=== PATIENT | male | born 1940 | race Caucasian/White ===

== ENCOUNTER 2017-01-07 14:21 | Observation (INO) ==
[2017-01-07 15:52] LABS: Basophils % 0.1 %; Eosinophils # 0.5 K/mcL (0.0-0.6); Eosinophils % 5.6 %; Hematocrit 37.7 % (37.5-50.1); Immature Granulocytes % 1.2 % (0-4); Lymphocytes # 1.7 K/mcL (0.6-4.6); Lymphocytes % 20.8 %; Mean Corpuscular HGB Conc 34.5 g/dL (31.6-35.5); Mean Corpuscular Volume 89.8 fL (83.0-100.0); Mean Platelet Volume 9.9 fL (9.4-12.4); Monocytes # 0.5 K/mcL (0.0-1.3); Monocytes % 6.2 %; Neutrophils # 5.4 K/mcL (1.6-8.9); Platelet Count 244 K/mcL (140-400); Red Cell Distribution Width 15.9 % (11.5-14.5); Segmented Neutrophils % 66.1 %
[2017-01-07 16:05] LABS: Alanine Aminotransferase 36 Units/L (0-55); Albumin 2.9 g/dL (3.5-5.0); Albumin/Globulin Ratio 0.9 (1.1-2.2); Alkaline Phosphatase 77 Units/L (38-126); Aspartate Amino Transferase 30 Units/L (5-34); BUN/Creatinine Ratio 13 (6-26); Bilirubin,Total 0.6 mg/dL (0.2-1.2); Blood Urea Nitrogen 12 mg/dL (8-26); Calcium 9.1 mg/dL (8.6-10.8); Carbon Dioxide 28 mEq/L (19-29); Chloride 102 mEq/L (98-109); Globulin 3.4 g/dL (2.4-3.5); Glucose 72 mg/dL (70-99); Osmolality,Calculated 282 (280-300); Potassium 4.3 mEq/L (3.5-4.5); Sodium 137 mEq/L (136-145); Total Protein 6.3 g/dL (6.0-8.3); eGFR For African Americans > 60 (> 60); eGFR For Non-African Americans > 60 (> 60)
[2017-01-07 16:24] LABS: INR 1.2; Prothrombin Time 12.8 Seconds (9.4-12.1)
[2017-01-07 16:27] LABS: Activated Partial Thrombo Time 26.1 Seconds (26.0-36.0)
--- NOTE | 2017-01-07 16:42 | Emergency Department Note ---
Disposition Clinical Impression: Bradycardia Disposition: Admitted As Inpatient Referrals: Bahman Pugh, [employer] [Primary Care Provider] - Forms: ED Satisfaction Letter General Adult HPI - General Chief complaint: ED Chest Pain Stated complaint: Headache Time Seen by Provider: 01/07/17 14:50 Source: patient, family Limitations: no limitations Nursing Notes Reviewed: Yes Vital Signs Reviewed: Yes - History of Present Illness HPI Narrative: Patient presents with complaint of headache shortness of breath. Patient states the headaches been going on for a few days he noticed after the shortness of breath started. Patient denies chest pain he does note he is been more short of breath over the past week with ambulation. Patient denies fevers and chills. Patient also noticed that he developed a low heart rate that went down in the 30s today while he was at home. Patient denies prior history of similar symptoms. he denies numbness and tingling denies bowel or bladder dysfunction associated with this. Pain Scale: 5 - Related Data Home Medications Medication Instructions Recorded Confirmed Albuterol Sulfate [Proair Hfa] 2 puff IH Q4H PRN 07/19/16 11/27/16 Aspirin [Lo-Dose Aspirin EC] 81 mg PO DAILY 07/19/16 11/27/16 Betaine HCl 300 mg PO DAILY 07/19/16 11/27/16 Calcium Carbonate [Calcium] 600 mg PO BID 07/19/16 11/27/16 Clopidogrel [Plavix] 75 mg PO DAILY 07/19/16 11/27/16 Cyanocobalamin (Vitamin B-12) 2,500 mcg SL DAILY 07/19/16 11/27/16 [Vitamin B-12] Enalapril Maleate [Vasotec] 20 mg PO BID 07/19/16 11/27/16 Finasteride [Proscar] 5 mg PO DAILY 07/19/16 11/27/16 Hydrochlorothiazide 0.5 tab PO QMWF 07/19/16 11/27/16 Insulin ASPART [Novolog Flexpen] 15 - 20 unit SQ TIDAC 07/19/16 11/27/16 Insulin Glargine,Hum.rec.anlog 50 unit SQ BID 07/19/16 11/27/16 [Lantus Solostar] Metoprolol [Lopressor] 1 tab PO DAILY 07/19/16 11/27/16 Multivit-Min/FA/Lycopen/Lutein 1 each PO DAILY 07/19/16 11/27/16 [Centrum Silver Tablet] Nitroglycerin 0.4 mg SL AD 07/19/16 11/27/16 Omeprazole 20 mg PO DAILY 07/19/16 11/27/16 Tacrolimus [Prograf] 1 mg PO BID 07/19/16 11/27/16 Tamsulosin [Flomax] 0.4 mg PO DAILY 07/19/16 11/27/16 Vitamin E 1,000 unit PO DAILY 07/19/16 11/27/16 Gabapentin [Neurontin] 300 mg PO DAILY 10/09/16 11/27/16 Previous Rx's Medication Instructions Recorded Polyethylene Glycol 3350 [MiraLAX 1 scoop PO DAILY #510 gm 07/19/16 Powder Bulk 17.9 Oz] Oxygen 2 l IH AD #1 unit 08/01/16 TraMADol [Ultram] 50 mg PO TID PRN #90 tablet 08/01/16 Supplies [SUPPLIES] 1 each .ROUTE AD #1 each 09/07/16 Sorafenib Tosylate [Nexavar] 200 mg PO BID #60 tablet 11/08/16 Allergies Allergy/AdvReac Type Severity Reaction Status Date / Time codeine AdvReac Vomiting Verified 11/08/16 11:35 morphine AdvReac See Verified 11/08/16 11:35 Comments Penicillins AdvReac Rash Verified 11/08/16 11:35 All systems ED: reviewed and negative except as stated. Past Medical History - Past Medical History Source: patient Medical history: Reports: COPD, coronary artery disease, diabetes, myocardial infarction, other Psychiatric history: Reports: no psych history - Social History Smoking Status: Unknown if ever smoked Smokeless Tobacco Status: No Alcohol use: Reports: none Drug use: Reports: none Physical Exam - General Limitations: no limitations General appearance: alert, in no apparent distress - Head Head exam: atraumatic, normocephalic, normal inspection - Eye Eye exam: Present: normal appearance, PERRL, EOMI - ENT ENT exam: normal exam, normal oropharynx, mucous membranes moist - Neck Neck exam: Present: normal inspection, full ROM, trachea midline - Chest Chest inspection: Present: normal inspection, symmetric chest wall rise - Respiratory Respiratory exam: Present: normal lung sounds bilaterally - Cardiovascular Cardiovascular exam: Present: regular rate, normal rhythm, normal heart sounds - Abdominal Exam Abdominal exam: Present: soft, Non-Tender. Absent: tenderness, distention, guarding, rebound, rigidity - Extremities Exam Extremities exam: Present: pedal edema. Absent: full ROM, tenderness - Back Exam Back exam: Present: normal inspection, full ROM. Absent: tenderness - Neurological Exam Neurological exam: Present: alert, oriented X3 - Psychiatric Psychiatric exam: Present: normal affect, normal mood - Skin Skin exam: Present: warm, dry, intact, normal color Course Vital Signs Temperature 97.8 F 01/07/17 14:25 Pulse Rate 66 01/07/17 14:25 Respiratory Rate 18 01/07/17 14:25 Blood Pressure 175/85 01/07/17 14:25 O2 Sat by Pulse Oximetry 97 01/07/17 14:25 Temperature 97.8 F 01/07/17 14:25 Pulse Rate 66 01/07/17 18:45 Respiratory Rate 16 01/07/17 18:45 Blood Pressure 158/68 01/07/17 18:45 O2 Sat by Pulse Oximetry 98 01/07/17 18:45 Oxygen Delivery Oxygen Delivery Room Air Medical Decision Making - Differential Diagnosis OK, metastasis, sepsis, medication effect - Lab Data Result diagrams: 01/07/17 15:40 01/07/17 15:40 Lab Results 01/07/17 01/07/17 01/07/17 Range/Units 15:40 15:40 15:40 WBC 8.2 (4.3-11.1) K/mcL RBC 4.20 (4.19-5.50) M/mcL Hgb 13.0 (12.9-16.9) g/dL Hct 37.7 (37.5-50.1) % MCV 89.8 (83.0-100.0) fL MCH 31.0 (28.0-33.3) pg MCHC 34.5 (31.6-35.5) g/dL RDW 15.9 H (11.5-14.5) % Plt Count 244 (140-400) K/mcL MPV 9.9 (9.4-12.4) fL Immature Gran % 1.2 (0-4) % Seg Neutrophils % 66.1 % Lymphocytes % 20.8 % Monocytes % 6.2 % Eosinophils % 5.6 % Basophils % 0.1 % Neutrophils # 5.4 (1.6-8.9) K/mcL Lymphocytes # 1.7 (0.6-4.6) K/mcL Monocytes # 0.5 (0.0-1.3) K/mcL Eosinophils # 0.5 (0.0-0.6) K/mcL Basophils # 0.0 (0.0-0.2) K/mcL PT 12.8 H (9.4-12.1) Seconds INR 1.2 APTT 26.1 (26.0-36.0) Seconds Sodium 137 (136-145) mEq/L Potassium 4.3 (3.5-4.5) mEq/L Chloride 102 (98-109) mEq/L Carbon Dioxide 28 (19-29) mEq/L BUN 12 (8-26) mg/dL Creatinine 0.90 (0.72-1.25) mg/dL Est GFR ( Amer) > 60 (> 60) Est GFR (Non-Af Amer) > 60 (> 60) BUN/Creatinine Ratio 13 (6-26) Glucose 72 (70-99) mg/dL Calculated Osmolality 282 (280-300) Lactic Acid (0.5-2.2) mmol/L Calcium 9.1 (8.6-10.8) mg/dL Total Bilirubin 0.6 (0.2-1.2) mg/dL AST 30 (5-34) Units/L ALT 36 (0-55) Units/L Alkaline Phosphatase 77 (38-126) Units/L Troponin I (0-0.03) ng/mL B-Natriuretic Peptide (0-100) pg/mL Serum Total Protein 6.3 (6.0-8.3) g/dL Albumin 2.9 L (3.5-5.0) g/dL Globulin 3.4 (2.4-3.5) g/dL Albumin/Globulin Ratio 0.9 L (1.1-2.2) Urine Color (Yellow) Urine Clarity (Clear) Urine pH (5.0-8.0) pH Units Ur Specific [place] (1.010-1.025) Urine Protein (Neg-Trace) mg/dL Urine Glucose (UA) (Normal) mg/dL Urine Ketones (Negative) mg/dL Urine Blood (Negative) Urine Nitrite (Negative) Urine Bilirubin (Negative) Urine Urobilinogen (Normal) mg/dL Ur Leukocyte Esterase (Negative) Ur Culture Indicated? (NO) 01/07/17 01/07/17 01/07/17 Range/Units 15:40 15:40 16:00 WBC (4.3-11.1) K/mcL RBC (4.19-5.50) M/mcL Hgb (12.9-16.9) g/dL Hct (37.5-50.1) % MCV (83.0-100.0) fL MCH (28.0-33.3) pg MCHC (31.6-35.5) g/dL RDW (11.5-14.5) % Plt Count (140-400) K/mcL MPV (9.4-12.4) fL Immature Gran % (0-4) % Seg Neutrophils % % Lymphocytes % % Monocytes % % Eosinophils % % Basophils % % Neutrophils # (1.6-8.9) K/mcL Lymphocytes # (0.6-4.6) K/mcL Monocytes # (0.0-1.3) K/mcL Eosinophils # (0.0-0.6) K/mcL Basophils # (0.0-0.2) K/mcL PT (9.4-12.1) Seconds INR APTT (26.0-36.0) Seconds Sodium (136-145) mEq/L Potassium (3.5-4.5) mEq/L Chloride (98-109) mEq/L Carbon Dioxide (19-29) mEq/L BUN (8-26) mg/dL Creatinine (0.72-1.25) mg/dL Est GFR ( Amer) (> 60) Est GFR (Non-Af Amer) (> 60) BUN/Creatinine Ratio (6-26) Glucose (70-99) mg/dL Calculated Osmolality (280-300) Lactic Acid 0.8 (0.5-2.2) mmol/L Calcium (8.6-10.8) mg/dL Total Bilirubin (0.2-1.2) mg/dL AST (5-34) Units/L ALT (0-55) Units/L Alkaline Phosphatase (38-126) Units/L Troponin I 0.03 (0-0.03) ng/mL B-Natriuretic Peptide 56 (0-100) pg/mL Serum Total Protein (6.0-8.3) g/dL Albumin (3.5-5.0) g/dL Globulin (2.4-3.5) g/dL Albumin/Globulin Ratio (1.1-2.2) Urine Color (Yellow) Urine Clarity (Clear) Urine pH (5.0-8.0) pH Units Ur Specific [place] (1.010-1.025) Urine Protein (Neg-Trace) mg/dL Urine Glucose (UA) (Normal) mg/dL Urine Ketones (Negative) mg/dL Urine Blood (Negative) Urine Nitrite (Negative) Urine Bilirubin (Negative) Urine Urobilinogen (Normal) mg/dL Ur Leukocyte Esterase (Negative) Ur Culture Indicated? (NO) 01/07/17 Range/Units 17:50 WBC (4.3-11.1) K/mcL RBC (4.19-5.50) M/mcL Hgb (12.9-16.9) g/dL Hct (37.5-50.1) % MCV (83.0-100.0) fL MCH (28.0-33.3) pg MCHC (31.6-35.5) g/dL RDW (11.5-14.5) % Plt Count (140-400) K/mcL MPV (9.4-12.4) fL Immature Gran % (0-4) % Seg Neutrophils % % Lymphocytes % % Monocytes % % Eosinophils % % Basophils % % Neutrophils # (1.6-8.9) K/mcL Lymphocytes # (0.6-4.6) K/mcL Monocytes # (0.0-1.3) K/mcL Eosinophils # (0.0-0.6) K/mcL Basophils # (0.0-0.2) K/mcL PT (9.4-12.1) Seconds INR APTT (26.0-36.0) Seconds Sodium (136-145) mEq/L Potassium (3.5-4.5) mEq/L Chloride (98-109) mEq/L Carbon Dioxide (19-29) mEq/L BUN (8-26) mg/dL Creatinine (0.72-1.25) mg/dL Est GFR ( Amer) (> 60) Est GFR (Non-Af Amer) (> 60) BUN/Creatinine Ratio (6-26) Glucose (70-99) mg/dL Calculated Osmolality (280-300) Lactic Acid (0.5-2.2) mmol/L Calcium (8.6-10.8) mg/dL Total Bilirubin (0.2-1.2) mg/dL AST (5-34) Units/L ALT (0-55) Units/L Alkaline Phosphatase (38-126) Units/L Troponin I (0-0.03) ng/mL B-Natriuretic Peptide (0-100) pg/mL Serum Total Protein (6.0-8.3) g/dL Albumin (3.5-5.0) g/dL Globulin (2.4-3.5) g/dL Albumin/Globulin Ratio (1.1-2.2) Urine Color Yellow (Yellow) Urine Clarity Clear (Clear) Urine pH 7.0 (5.0-8.0) pH Units Ur Specific [place] > 1.030 H (1.010-1.025) Urine Protein Negative (Neg-Trace) mg/dL Urine Glucose (UA) Normal (Normal) mg/dL Urine Ketones Negative (Negative) mg/dL Urine Blood Negative (Negative) Urine Nitrite Negative (Negative) Urine Bilirubin Negative (Negative) Urine Urobilinogen Normal (Normal) mg/dL Ur Leukocyte Esterase Negative (Negative) Ur Culture Indicated? NO (NO) - Radiology Data Radiology results reviewed: Yes I reviewed the patient's radiology results. - EKG Data EKG #1 EKG attestation: Yes I reviewed and interpreted this EKG. EKG shows normal: sinus rhythm Rate: normal (Sinus arrhythmia)
[2017-01-07 17:58] LABS: Bilirubin,Urine Negative (Negative); Blood,Urine Negative (Negative); Clarity,Urine Clear (Clear); Color,Urine Yellow (Yellow); Glucose,Urine (UA) Normal (Normal); Ketones,Urine Negative (Negative); Leukocyte Esterase,Urine Negative (Negative); Nitrite,Urine Negative (Negative); Protein,Urine Negative (Neg-Trace); Specific Gravity,Urine > 1.030 (1.010-1.025); Urobilinogen,Urine Normal (Normal)
[2017-01-07 19:28] LABS: Thyroid Stimulating Hormone 2.382 mcIU/mL (0.350-4.840)
[2017-01-07] MEDS ORDERED: Naloxone 0.4 MG/ML INJ IVP PRN (20:35)
[2017-01-07] MEDS ORDERED: Ibuprofen 400 MG TABLET PO PRN (20:35)
--- NOTE | 2017-01-07 20:47 | Internal Med History&Physical ---
<Gracie Garcia M - Last Filed: 01/07/17 22:11> Date of Encounter: 01/07/17 Time of Encounter: 20:42 Assessment and Plan (1) Bradycardia Current visit: Yes Status: Acute Patient reports occasional lightheadedness. He was using his pulse oximeter this morning and noticed his heart rate read 33. He states he did not feel any lightheadedness, dizzyness or palpitations at that time. Since he has been in the hospital, his heart rate has been in the 60s. Troponin, BNP, TSH normal. Continuous classroom monitor Serial troponins Will check magnesium Atropine 0.5mg IVP PRN if HR drops below 40. (2) Headache Current visit: Yes Status: Acute Patient reports headache for the last 2 days. He has been having URI symptoms for the last week (now improving with PO levaquin) and also reports he feels like he is dehydrated as he has not been drinking much. Head CT showed no hemorrhage or mass, and showed diffuse paranasal sinus disease with near complete opacification of the maxillary sinuses. Patient's headache likely related to sinusitis. Afrin NS BID continue PO Levaquin daily IV fluids 0.9NS at 75mL/hr Ibuprofen and acetaminophen PRN Qualifiers: Headache type: tension-type Headache chronicity pattern: acute headache Intractability: intractable Qualified Code(s): G44.201 - Tension-type headache , unspecified, intractable (3) Dyspnea on exertion Current visit: No Status: Acute Patient with pulmonary fibrosis, uses 2L of O2 at home. Patient reports his shortness of breath seems to be his baseline. He has been satting 95-100% on 2L. Titrate Oxygen to maintain O2 levels > 92%. 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 He follows with Dr. Henao at [facility] and is on Nexavar chemotherapy, but it is currently on hold while he is on antibiotics. Patient not complaining of any pain at this time. (5) Sinusitis Current visit: Yes Status: Acute Patient reporting URI for the last week, completed a round of antibiotics yesterday without improvement. He saw his oncologist yesterday for appointment , who started him on Levaquin. He reports significant improvement since starting the Levaquin. CT of head showed near complete opacification of maxillary sinuses. Afrin BID continue PO levaquin daily 0.9NS at 75mL/hr Qualifiers: Sinusitis location: maxillary Chronicity: acute Recurrence: not specified as recurrent Qualified Code(s): J01.00 - Acute maxillary sinusitis, unspecified (6) Type 2 diabetes mellitus Current visit: Yes Status: Acute Well controlled as evidenced by Hgb A1c of 5.6% in September. diabetic diet check blood sugar ACHS continue basal dose of insulin 50u Levemir BID 15u Lispro TID with meals Sliding scale correction dose ACHS hypoglycemic protocol Qualifiers: Diabetes mellitus complication status: with unspecified complications Diabetes mellitus [facility] insulin use: with [facility] use Qualified Code(s) : E11.8 - Type 2 diabetes mellitus with unspecified complications; Z79.4 - intermediate accountant (current) use of insulin (7) Liver transplant recipient Current visit: Yes Status: Acute Patient received liver transplant in [place] in 2004 for hepatocellular carcinoma. He takes 1mg Prograf BID for anti-rejection. He continues to follow with the transplant center in [place]. Liver function studies were normal. Continue home dose of Prograf. (8) DVT prophylaxis Current visit: Yes Status: Acute Encourage ambulation anti-embolic stockings Lovenox SQ daily Internal Medicine - H&P: HPI Chief complaint: headache Admitted From: Emergency Dept Plans for Post Hospital Care: Home History of present illness: Mr. Pugh is a 76 year old male with hypertension, coronary artery disease, type 2 diabetes, pulmonary fibrosis and interstitial lung disease, hepatocellular carcinoma status post liver transplant 2004 with subsequent metastasis to lung and sacrum status post left lower lobectomy and palliative chemotherapy and radiation who presented to the emergency department today with concerns about a headache he has had the last 2 days, and reporting that his heart rate dropped to the 30s earlier today. Patient reports he has a pulse oximeter at home and was checking it this morning as he checks it periodically and noted that his heart rate was in the 30s. He will return for return to her normal rate. When questioned he stated he was not experiencing any lightheadedness, dizziness, palpitations or abnormal symptoms during that time. He does report that he has lightheadedness from time to time, just not at this particular instance. He reports he has been having a cough and increased congestion nasal drainage for the past week. He reports some chills and an episode of night sweats 2 nights ago. He completed a course of antibiotics yesterday and saw his oncologist yesterday who put him on Levaquin. He reports that after 2 days of Levaquin he feels much better as far as the coughing and nasal congestion go. He reports his headache developed yesterday and has continued until today, reports that [id number] medication and nothing to relieve his headache. He describes it as dull, pounding. Evaluation in the emergency department included a head CT which showed no hemorrhage or mass, there is mild small vessel ischemic change and diffuse paranasal sinus disease. Chest x-ray showed increased interstitial opacities bilaterally compatible with chronic interstitial lung disease, small bilateral pleural effusions and bibasilar atelectasis. Chest CT was negative for pulmonary embolus, demonstrated interstitial scarring with mild bibasilar bronchiectasis and postsurgical changes noted in each lung. Troponin was negative at 0.03, BNP was negative at 56, chemistry was grossly normal, white blood cell count was normal at 8.2. On exam, patient is alert and oriented, in no acute distress. Heart has regular rate and rhythm. Lungs Have some superior rhonchi. Past Med Surg Social Fam HX - Past Medical History Medical history: cancer (HCC metastasis to lung and sacrum), COPD (pulmonary fibrosis), coronary artery disease, diabetes, GERD, hyperlipidemia, hypertension , myocardial infarction, other Psychiatric history: no psych history - Past Surgical History Surgical History: angioplasty/stent, cancer surgery (Left lower lobectomy), transplant (liver transplant 2004) - Social History Smoking Status: Former smoker Smokeless Tobacco Status: No Alcohol use: none Drug use: none - Family History Mother Living Status: Age at : 51 Hx Family Neurologic Disorders: Yes (parkinsons) Father Cause of : infection Internal Medicine - H&P: Meds Albuterol Sulfate [Proair Hfa] 2 puff IH Q4H PRN 07/19/16 [History] Aspirin [Lo-Dose Aspirin EC] 81 mg PO DAILY 07/19/16 [History] Betaine HCl 300 mg PO DAILY 07/19/16 [History] Calcium Carbonate [Calcium] 600 mg PO BID 07/19/16 [History] Clopidogrel [Plavix] 75 mg PO DAILY 07/19/16 [History] Cyanocobalamin (Vitamin B-12) [Vitamin B-12] 2,500 mcg SL DAILY 07/19/16 [ History] Enalapril Maleate [Vasotec] 10 mg PO BID 07/19/16 [History] Finasteride [Proscar] 5 mg PO DAILY 07/19/16 [History] Hydrochlorothiazide 0.5 tab PO QMWF 07/19/16 [History] Insulin ASPART [Novolog Flexpen] 15 - 20 unit SQ TIDAC 07/19/16 [History] Insulin Glargine,Hum.rec.anlog [Lantus Solostar] 50 unit SQ BID 07/19/16 [ History] Metoprolol [Lopressor] 1 tab PO DAILY 07/19/16 [History] Multivit-Min/FA/Lycopen/Lutein [Centrum Silver Tablet] 1 each PO DAILY 07/19/16 [History] Nitroglycerin 0.4 mg SL AD 07/19/16 [History] Omeprazole 20 mg PO HS 07/19/16 [History] Polyethylene Glycol 3350 [MiraLAX Powder Bulk 17.9 Oz] 1 scoop PO DAILY #510 gm 07/19/16 [Rx] Tacrolimus [Prograf] 1 mg PO BID 07/19/16 [History] Tamsulosin [Flomax] 0.4 mg PO DAILY 07/19/16 [History] Vitamin E 1,000 unit PO DAILY 07/19/16 [History] Oxygen 2 l IH AD #1 unit 08/01/16 [Rx] TraMADol [Ultram] 50 mg PO TID PRN #90 tablet 08/01/16 [Rx] Gabapentin [Neurontin] 300 mg PO HS 10/09/16 [History] Sorafenib Tosylate [Nexavar] 200 mg PO BID #60 tablet 11/08/16 [Rx] Benzonatate [Tessalon] 200 mg PO Q8H PRN 01/07/17 [History] Levofloxacin [Levaquin] 750 mg PO DAILY 01/07/17 [History] Tacrolimus [Prograf] 1 mg PO BID 01/07/17 [History] Allergies codeine Adverse Reaction (Verified 11/08/16 11:35) Vomiting morphine Adverse Reaction (Verified 11/08/16 11:35) See Comments Pt states it made him feel like he was going in slow motion. Penicillins Adverse Reaction (Verified 11/08/16 11:35) Rash All Systems PM: A 10-system review of systems was performed and is negative for pertinent findings except as documented above in the HPI. - Constitutional Constitutional: chills, night sweats, no fever(s) - EENT Eyes: no change in vision, no discharge, no pain, no photophobia Ears: no ear discharge, no ear pain, no tinnitus Nose, mouth and throat: nasal congestion, nasal discharge, sinus pressure, no dysphagia, no neck pain, no sore throat - Cardiovascular Cardiovascular ROS IM: lightheadedness, no chest pain, no diaphoresis, no dyspnea, no palpitations, no syncope - Respiratory Respiratory: cough, dyspnea, dyspnea on exertion, no wheezing, no excessive phlegm production - Gastrointestinal Gastrointestinal: no abdominal pain, no diarrhea, no hematemesis, no hematochezia, no melena, no nausea, no vomiting - Musculoskeletal Musculoskeletal ROS IM: no numbness, no tingling - Integumentary Integumentary IM: no rash, no unusual bruising - Neurological Neurological ROS: no confusion, no convulsions, no focal weakness, no numbness, no tingling, no tremor(s) - Hematologic/Lymphatic Hematologic/Lymphatic: no easy bruising - Constitutional Vitals: Temp Pulse Resp BP Pulse Ox 97.8 F 66 16 155/65 98 01/07/17 14:25 01/07/17 18:45 01/07/17 19:33 01/07/17 19:33 01/07/17 18:45 General appearance: Present: A&O X 3, no acute distress - Head Head exam: Present: atraumatic, normocephalic - Eye Eye exam: Present: PERRL, conjuntiva pink, sclera anicteric Pupils: Present: PERRL - Neck Neck exam general surgery: Present: supple, trachea midline. Absent: lymphadenopathy - Respiratory Respiratory exam: Present: CTAB ( posterior), rhonchi (superior). Absent: accessory muscle use, rales, wheezes - Cardiovascular Cardiovascular exam: Present: RRR, +S1, +S2. Absent: diastolic murmur, gallop, rubs, systolic murmur - GI/Abdominal GI/Abdominal exam: Present: normal bowel sounds, soft, no peritoneal signs. Absent: distended, tenderness - Extremities Exam Extremities exam: Present: warm, radial pulses palpable and symetrical. Absent : calf tenderness, cyanotic, pedal edema - Neurological Exam Neurological exam: Present: CN II-XII intact, oriented X3, no focal deficits. Absent: facial droop, speech deficit - Skin Skin exam: Present: dry, intact Internal Med - H&P Results - Labs CBC & Chem 7: 01/07/17 15:40 01/07/17 15:40 Labs: All Lab Results (24 Hours) 01/07/17 01/07/17 01/07/17 Range/Units 15:40 15:40 15:40 WBC 8.2 (4.3-11.1) K/mcL RBC 4.20 (4.19-5.50) M/mcL Hgb 13.0 (12.9-16.9) g/dL Hct 37.7 (37.5-50.1) % MCV 89.8 (83.0-100.0) fL MCH 31.0 (28.0-33.3) pg MCHC 34.5 (31.6-35.5) g/dL RDW 15.9 H (11.5-14.5) % Plt Count 244 (140-400) K/mcL MPV 9.9 (9.4-12.4) fL Immature Gran % 1.2 (0-4) % Seg Neutrophils % 66.1 % Lymphocytes % 20.8 % Monocytes % 6.2 % Eosinophils % 5.6 % Basophils % 0.1 % Neutrophils # 5.4 (1.6-8.9) K/mcL Lymphocytes # 1.7 (0.6-4.6) K/mcL Monocytes # 0.5 (0.0-1.3) K/mcL Eosinophils # 0.5 (0.0-0.6) K/mcL Basophils # 0.0 (0.0-0.2) K/mcL PT 12.8 H (9.4-12.1) Seconds INR 1.2 APTT 26.1 (26.0-36.0) Seconds Sodium 137 (136-145) mEq/L Potassium 4.3 (3.5-4.5) mEq/L Chloride 102 (98-109) mEq/L Carbon Dioxide 28 (19-29) mEq/L BUN 12 (8-26) mg/dL Creatinine 0.90 (0.72-1.25) mg/dL Est GFR ( Amer) > 60 (> 60) Est GFR (Non-Af Amer) > 60 (> 60) BUN/Creatinine Ratio 13 (6-26) Glucose 72 (70-99) mg/dL Calculated Osmolality 282 (280-300) Lactic Acid (0.5-2.2) mmol/L Calcium 9.1 (8.6-10.8) mg/dL Total Bilirubin 0.6 (0.2-1.2) mg/dL AST 30 (5-34) Units/L ALT 36 (0-55) Units/L Alkaline Phosphatase 77 (38-126) Units/L Troponin I (0-0.03) ng/mL B-Natriuretic Peptide (0-100) pg/mL Serum Total Protein 6.3 (6.0-8.3) g/dL Albumin 2.9 L (3.5-5.0) g/dL Globulin 3.4 (2.4-3.5) g/dL Albumin/Globulin Ratio 0.9 L (1.1-2.2) TSH 2.382 (0.350-4.840) mcIU/mL Urine Color (Yellow) Urine Clarity (Clear) Urine pH (5.0-8.0) pH Units Ur Specific God[place] (1.010-1.025) Urine Protein (Neg-Trace) mg/dL Urine Glucose (UA) (Normal) mg/dL Urine Ketones (Negative) mg/dL Urine Blood (Negative) Urine Nitrite (Negative) Urine Bilirubin (Negative) Urine Urobilinogen (Normal) mg/dL Ur Leukocyte Esterase (Negative) Ur Culture Indicated? (NO) 01/07/17 01/07/17 01/07/17 Range/Units 15:40 15:40 16:00 WBC (4.3-11.1) K/mcL RBC (4.19-5.50) M/mcL Hgb (12.9-16.9) g/dL Hct (37.5-50.1) % MCV (83.0-100.0) fL MCH (28.0-33.3) pg MCHC (31.6-35.5) g/dL RDW (11.5-14.5) % Plt Count (140-400) K/mcL MPV (9.4-12.4) fL Immature Gran % (0-4) % Seg Neutrophils % % Lymphocytes % % Monocytes % % Eosinophils % % Basophils % % Neutrophils # (1.6-8.9) K/mcL Lymphocytes # (0.6-4.6) K/mcL Monocytes # (0.0-1.3) K/mcL Eosinophils # (0.0-0.6) K/mcL Basophils # (0.0-0.2) K/mcL PT (9.4-12.1) Seconds INR APTT (26.0-36.0) Seconds Sodium (136-145) mEq/L Potassium (3.5-4.5) mEq/L Chloride (98-109) mEq/L Carbon Dioxide (19-29) mEq/L BUN (8-26) mg/dL Creatinine (0.72-1.25) mg/dL Est GFR ( Amer) (> 60) Est GFR (Non-Af Amer) (> 60) BUN/Creatinine Ratio (6-26) Glucose (70-99) mg/dL Calculated Osmolality (280-300) Lactic Acid 0.8 (0.5-2.2) mmol/L Calcium (8.6-10.8) mg/dL Total Bilirubin (0.2-1.2) mg/dL AST (5-34) Units/L ALT (0-55) Units/L Alkaline Phosphatase (38-126) Units/L Troponin I 0.03 (0-0.03) ng/mL B-Natriuretic Peptide 56 (0-100) pg/mL Serum Total Protein (6.0-8.3) g/dL Albumin (3.5-5.0) g/dL Globulin (2.4-3.5) g/dL Albumin/Globulin Ratio (1.1-2.2) TSH (0.350-4.840) mcIU/mL Urine Color (Yellow) Urine Clarity (Clear) Urine pH (5.0-8.0) pH Units Ur Specific Godd[place] (1.010-1.025) Urine Protein (Neg-Trace) mg/dL Urine Glucose (UA) (Normal) mg/dL Urine Ketones (Negative) mg/dL Urine Blood (Negative) Urine Nitrite (Negative) Urine Bilirubin (Negative) Urine Urobilinogen (Normal) mg/dL Ur Leukocyte Esterase (Negative) Ur Culture Indicated? (NO) 01/07/17 Range/Units 17:50 WBC (4.3-11.1) K/mcL RBC (4.19-5.50) M/mcL Hgb (12.9-16.9) g/dL Hct (37.5-50.1) % MCV (83.0-100.0) fL MCH (28.0-33.3) pg MCHC (31.6-35.5) g/dL RDW (11.5-14.5) % Plt Count (140-400) K/mcL MPV (9.4-12.4) fL Immature Gran % (0-4) % Seg Neutrophils % % Lymphocytes % % Monocytes % % Eosinophils % % Basophils % % Neutrophils # (1.6-8.9) K/mcL Lymphocytes # (0.6-4.6) K/mcL Monocytes # (0.0-1.3) K/mcL Eosinophils # (0.0-0.6) K/mcL Basophils # (0.0-0.2) K/mcL PT (9.4-12.1) Seconds INR APTT (26.0-36.0) Seconds Sodium (136-145) mEq/L Potassium (3.5-4.5) mEq/L Chloride (98-109) mEq/L Carbon Dioxide (19-29) mEq/L BUN (8-26) mg/dL Creatinine (0.72-1.25) mg/dL Est GFR ( Amer) (> 60) Est GFR (Non-Af Amer) (> 60) BUN/Creatinine Ratio (6-26) Glucose (70-99) mg/dL Calculated Osmolality (280-300) Lactic Acid (0.5-2.2) mmol/L Calcium (8.6-10.8) mg/dL Total Bilirubin (0.2-1.2) mg/dL AST (5-34) Units/L ALT (0-55) Units/L Alkaline Phosphatase (38-126) Units/L Troponin I (0-0.03) ng/mL B-Natriuretic Peptide (0-100) pg/mL Serum Total Protein (6.0-8.3) g/dL Albumin (3.5-5.0) g/dL Globulin (2.4-3.5) g/dL Albumin/Globulin Ratio (1.1-2.2) TSH (0.350-4.840) mcIU/mL Urine Color Yellow (Yellow) Urine Clarity Clear (Clear) Urine pH 7.0 (5.0-8.0) pH Units Ur Specific [place] > 1.030 H (1.010-1.025) Urine Protein Negative (Neg-Trace) mg/dL Urine Glucose (UA) Normal (Normal) mg/dL Urine Ketones Negative (Negative) mg/dL Urine Blood Negative (Negative) Urine Nitrite Negative (Negative) Urine Bilirubin Negative (Negative) Urine Urobilinogen Normal (Normal) mg/dL Ur Leukocyte Esterase Negative (Negative) Ur Culture Indicated? NO (NO) <Julius Leon - Last Filed: 01/08/17 03:10> Date of Encounter: 01/07/17 Internal Medicine - H&P: HPI History of present illness: Mr. Pugh is a 76 year old male All Systems PM: A 10-system review of systems was performed and is negative for pertinent findings except as documented above in the HPI. - Constitutional Vitals: Temp Pulse Resp BP Pulse Ox 97.5 F L 75 17 136/63 94 L 01/07/17 23:01 01/07/17 23:01 01/07/17 23:01 01/07/17 23:01 01/07/17 23:01 Internal Med - H&P Results - Labs CBC & Chem 7: 01/07/17 15:40 01/07/17 15:40 Labs: Cardiac Enzymes 01/07/17 Range/Units 21:52 Troponin I 0.06 H* (0-0.03) ng/mL - Attending Attestation I performed a history and physical examination of the patient and discussed his management with the APPLICATIONS DEVELOPER/ANP. I reviewed the residents note and agree with the documented findings and plan of care, with additions as below. 76 year old male with h/o HTN, DM, CAD, Pulmonary fibrosis / ILD, Hepatocellular carcinoma s/p liver transplant in 2004, metastatic disease. hypertension, coronary artery disease, type 2 diabetes, pulmonary fibrosis and interstitial lung disease, hepatocellular carcinoma status post liver transplant 2004 with subsequent metastasis. He apparently noted his heart rate to be 33, on pulse oximetry monitor. Apparently not symptomatic with that. He reports headache CT head showed diffuse paranasal sinus disease. EKG showed sinus rhythm with heart rate of 60 bpm, RBBB, QTC of 430 milliseconds. O/E: Pt is comfortable. Lungs: Bilateral basilar crackles. Cardiac regular rate and rhythm. A/P: Episode of bradycardia: Asymptomatic bradycardia at home. TSH is normal. Cardiac monitoring. Atropine PRN, if symptomatic bradycardia. Check troponins. Echocardiogram. Consider Cardiology consult. Sinusitis: continue levofloxacin.
[2017-01-07] MEDS ORDERED: Benzonatate 100 MG CAPSULE PO PRN (21:15)
[2017-01-07] MEDS ORDERED: Gabapentin 300 MG CAPSULE PO SCH (21:15)
[2017-01-07] MEDS ORDERED: traMADol 50 MG TABLET PO PRN (21:15)
[2017-01-07] MEDS ORDERED: Nitroglycerin 0.4 MG TAB.SUBL SL SCH (21:15)
[2017-01-07] MEDS ORDERED: *HR* Atropine Sulfate 1 MG/10 ML SYRINGE IVP PRN (21:23)
[2017-01-07] MEDS ORDERED: D5% in Water 1,000 ML IV PRN (21:28)
[2017-01-07] MEDS ORDERED: *HR* Dextrose 50 % in Water (Syg) 50 ML SYRINGE IVP PRN (21:28)
[2017-01-07] MEDS ORDERED: Dextrose Gel 15 GM PO PRN ×2 (21:28)
[2017-01-07] MEDS ORDERED: 0.9 % Sodium Chloride 1,000 ML IVC SCH (21:30)
[2017-01-07] MEDS ORDERED: Insulin LISPRO 300 UNITS/3 ML VIAL SQ SCH (21:30)
[2017-01-07 22:10] LABS: Hemoglobin A1C 6.2 %
[2017-01-07 22:12] LABS: Magnesium 1.6 mg/dL (1.6-2.6); Phosphorous 2.6 mg/dL (2.3-4.7)
[2017-01-07] MEDS: Tacrolimus [Prograf] 1 MG PO SCH (22:13)
[2017-01-07] MEDS: Insulin DETEMIR 100 UNIT/ML X5UNITS SQ SCH (22:14)
[2017-01-07] MEDS: Oxymetazoline Nasal SPRAY BOTTLE NS SCH (22:15)
[2017-01-08 05:28] LABS: Basophils % 0.4 %; Eosinophils # 0.5 K/mcL (0.0-0.6); Eosinophils % 6.9 %; Hematocrit 33.2 % (37.5-50.1); Hemoglobin 11.6 g/dL (12.9-16.9); Immature Granulocytes % 0.9 % (0-4); Lymphocytes # 1.7 K/mcL (0.6-4.6); Lymphocytes % 25.2 %; Mean Corpuscular HGB Conc 34.9 g/dL (31.6-35.5); Mean Corpuscular Hemoglobin 31.9 pg (28.0-33.3); Mean Corpuscular Volume 91.2 fL (83.0-100.0); Mean Platelet Volume 10.8 fL (9.4-12.4); Monocytes # 0.5 K/mcL (0.0-1.3); Monocytes % 7.8 %; Platelet Count 232 K/mcL (140-400); Red Blood Count 3.64 M/mcL (4.19-5.50); Red Cell Distribution Width 15.9 % (11.5-14.5); Segmented Neutrophils % 58.8 %
[2017-01-08 05:41] LABS: BUN/Creatinine Ratio 11 (6-26); Blood Urea Nitrogen 9 mg/dL (8-26); Calcium 8.8 mg/dL (8.6-10.8); Carbon Dioxide 28 mEq/L (19-29); Chloride 105 mEq/L (98-109); Glucose 55 mg/dL (70-99); Osmolality,Calculated 286 (280-300); Sodium 140 mEq/L (136-145); eGFR For African Americans > 60 (> 60); eGFR For Non-African Americans > 60 (> 60)
[2017-01-08] MEDS: Oxymetazoline Nasal SPRAY BOTTLE NS SCH (06:22)
[2017-01-08] MEDS ORDERED: *HR* Enoxaparin 40 MG/0.4 ML SYRINGE SQ SCH (07:00)
[2017-01-08] MEDS: Insulin LISPRO 300 UNITS/3 ML VIAL SQ SCH ×4 (07:45→12:10)
[2017-01-08] MEDS: Insulin DETEMIR 100 UNIT/ML X5UNITS SQ SCH (08:00)
[2017-01-08] MEDS ORDERED: Aspirin Enteric Coated 81 MG Tablet PO SCH (09:00)
[2017-01-08] MEDS ORDERED: levoFLOXacin 750 MG TABLET PO SCH (09:00)
[2017-01-08] MEDS ORDERED: Finasteride 5 MG TABLET PO SCH (09:00)
[2017-01-08] MEDS ORDERED: TACROLIMUS 1 MG PO SCH (09:00)
[2017-01-08] MEDS: Tacrolimus [Prograf] 1 MG PO SCH (09:00)
--- NOTE | 2017-01-08 09:40 | Cardiology Consult Note ---
Date of Encounter: 01/08/17 Time of Encounter: 09:00 Assessment and Plan (1) Bradycardia Current Visit: Yes Status: Acute Avg HR was 66 bpm, frequent multi focal PVC, One four beat run NSVT, Min HR was 50 bpm. HR occasionally counted as low as 33 bpm d/t frequent PVC. No significant bradycardia seen on telemetry review. Reports lightheadedness two weeks ago. No recent symptoms with noted with low HR at home. On short acting lopressor once a day. Will change to twice a day. Continue lopressor for PVC. TTE pending. (2) Troponin level elevated Current Visit: Yes Status: Acute Mild elevation troponin, 0.03, 0.06, 0.08. Currently denies chest pain. TTE ordered. Medical management recommended. (3) CAD (coronary artery disease) Current Visit: Yes Status: Acute H/o AR s/p PCI to the LAD x 2. Most recently in 2013. Continue asa, plavix, statin, and bb. Qualifiers: Coronary Disease-Associated Artery/Lesion type: [place] artery [place] vs. transplanted heart: [place] heart Associated angina: without angina Qualified Code(s): I25.10 - Atherosclerotic heart disease of [place] coronary artery without angina pectoris Discussion w patient/family: The assessment and plan as outlined above was discussed with the patient and/or family members who expressed understanding and agreement. All questions were answered. Thank you for involving us in the care of your patient. Please call with any questions. History of Present Illness Consult date: 01/08/17 Requesting physician: Julius Leon Consult reason: bradycardia Chief complaint: Headache, low heart rates History of present illness: Mr. 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 He presented with the c/o headaches. He was being treated for an upper respiratory infection. He c/o his ears feeling full and his hearing is decreased. He also reported his HR reading as low as 33 bpm on home pulse ox over the last two days. He denies lightheadedness or dizziness over the past two days. He c/o feeling lightheaded two weeks ago and would have to sit down frequently. He relates this to being started on a new chemotherapy agent. He also reports having exertional chest pain after starting the chemotherapy pill. He denies chest pain since two weeks ago. Previous cardiac testing: TTE- 04/2014- EF 55%,BBB, no significant valvular disease. LHC- 80% ISR in the pLAD- FACUNDO/PTCA completed. 40% stenosis mCx, 40% stenosis 1st OM, 40% stenosis pRCA. Past Med Surg Social Fam HX - Past Medical History Medical history: cancer (HCC metastasis to lung and sacrum), COPD (pulmonary fibrosis), coronary artery disease, diabetes, GERD, hyperlipidemia, hypertension , myocardial infarction, other Psychiatric history: no psych history - Past Surgical History Surgical History: angioplasty/stent, cancer surgery (Left lower lobectomy), transplant (liver transplant 2004) - Social History Smoking Status: Former smoker Smokeless Tobacco Status: No Alcohol use: none Drug use: none - Family History Mother Living Status: Age at : 51 Hx Family Neurologic Disorders: Yes (parkinsons) Father Cause of : infection Medications and Allergies Albuterol Sulfate [Proair Hfa] 2 puff IH Q4H PRN 07/19/16 [History] Aspirin [Lo-Dose Aspirin EC] 81 mg PO DAILY 07/19/16 [History] Betaine HCl 300 mg PO DAILY 07/19/16 [History] Calcium Carbonate [Calcium] 600 mg PO BID 07/19/16 [History] Clopidogrel [Plavix] 75 mg PO DAILY 07/19/16 [History] Cyanocobalamin (Vitamin B-12) [Vitamin B-12] 2,500 mcg SL DAILY 07/19/16 [ History] Enalapril Maleate [Vasotec] 10 mg PO BID 07/19/16 [History] Finasteride [Proscar] 5 mg PO DAILY 07/19/16 [History] Hydrochlorothiazide 0.5 tab PO QMWF 07/19/16 [History] Insulin ASPART [Novolog Flexpen] 15 - 20 unit SQ TIDAC 07/19/16 [History] Insulin Glargine,Hum.rec.anlog [Lantus Solostar] 50 unit SQ BID 07/19/16 [ History] Metoprolol [Lopressor] 1 tab PO DAILY 07/19/16 [History] Multivit-Min/FA/Lycopen/Lutein [Centrum Silver Tablet] 1 each PO DAILY 07/19/16 [History] Nitroglycerin 0.4 mg SL AD 07/19/16 [History] Omeprazole 20 mg PO HS 07/19/16 [History] Polyethylene Glycol 3350 [MiraLAX Powder Bulk 17.9 Oz] 1 scoop PO DAILY #510 gm 07/19/16 [Rx] Tacrolimus [Prograf] 1 mg PO BID 07/19/16 [History] Tamsulosin [Flomax] 0.4 mg PO DAILY 07/19/16 [History] Vitamin E 1,000 unit PO DAILY 07/19/16 [History] Oxygen 2 l IH AD #1 unit 08/01/16 [Rx] TraMADol [Ultram] 50 mg PO TID PRN #90 tablet 08/01/16 [Rx] Gabapentin [Neurontin] 300 mg PO HS 10/09/16 [History] Sorafenib Tosylate [Nexavar] 200 mg PO BID #60 tablet 11/08/16 [Rx] Benzonatate [Tessalon] 200 mg PO Q8H PRN 01/07/17 [History] Levofloxacin [Levaquin] 750 mg PO DAILY 01/07/17 [History] Tacrolimus [Prograf] 1 mg PO BID 01/07/17 [History] Allergies codeine Adverse Reaction (Verified 11/08/16 11:35) Vomiting morphine Adverse Reaction (Verified 11/08/16 11:35) See Comments Pt states it made him feel like he was going in slow motion. Penicillins Adverse Reaction (Verified 11/08/16 11:35) Rash All Systems Review: A 10-system review of systems was performed and is negative for pertinent findings except as documented above in the HPI. Physical Examination Vital Signs, Last 4 Hours Temp Pulse Resp BP Pulse Ox 01/08/17 08:00 96 01/08/17 06:55 97.6 F 73 16 124/71 96 General: Conversant, No Apparent Distress HEENT: Atraumatic, Normocephaly, Mucus Membranes Moist Neck: No JVD, Normal carotid pulses Cardiac: Reg Rate and Rhythm, Normal S1 and S2, No Murmur Lungs: Normal Breath Sounds, No Wheeze, Rales, Rhonchi Neuro: Alert and responsive, No focal deficits noted Abdomen: Soft, Non-Tender Skin: No rashes noted on visualized skin Musculoskeletal: No Chest Wall Tenderness Extremities: No Clubbing, No Cyanosis, No Edema, Normal Pulses Results 01/08/17 04:37 01/08/17 04:37 Lab Results 01/07/17 01/07/17 01/08/17 21:52 21:52 04:37 WBC 6.8 Hgb 11.6 L Hct 33.2 L Plt Count 232 Sodium Potassium Chloride Carbon Dioxide BUN Creatinine Glucose Calcium Magnesium 1.6 Troponin I 0.06 H* 01/08/17 01/08/17 04:37 04:37 WBC Hgb Hct Plt Count Sodium 140 Potassium 4.0 Chloride 105 Carbon Dioxide 28 BUN 9 Creatinine 0.79 Glucose 55 L Calcium 8.8 Magnesium Troponin I 0.08 H* - EKG Interpretation EKG results cardiology: personally reviewed (SR with RBBB, HR 60 bpm), other ( Avg HR was 66 bpm, frequent multi focal PVC, One four beat run NSVT, Min HR was 50 bpm. HR occasionally counted as low as 33 bpm d/t frequent PVC. No significant bradycardia seen.) Consult Discharge Plan - Plan Referrals: Bahman Pugh, [employer] [Primary Care Provider] -
--- NOTE | 2017-01-08 14:46 | ECHO - Doppler Report ---
Echocardiogram Name: Emile Pugh Date of Study: 01/08/2017 Date: 1940 Ht: 69.0 in Medical Record#: [id number] Age: 76 Wt: 249.0 lb Gender: Male BSA: 2.27 Order #: [id number] Location: [facility] Room #: 3B54 Reading Physician: Tonia High DO Log Roller: VEE YaoT, [facility] Ordering Physician: Sukhi Leon MD Primary Physician: Bahman Pugh CNP Indications: Bradycardia Impressions: LVEF 60%. Normal left ventricular size and systolic function. Mild concentric hypertrophy of the left ventricle. There is evidence of mild diastolic dysfunction of the left ventricle. Normal right ventricular size and function. Mild mitral regurgitation. Mild pulmonic regurgitation. No pulmonary hypertension. Abnormal rhythm throughout exam. Consider sinus with AVB. Left Ventricular Wall Motion: Rest Echo Findings The apex, apical inferior, mid inferior, basal inferior, apical anterior, mid anterior and basal anterior gregory were not visualized. All other wall segments showed normal motion. Findings: Study Quality * Technically adequate exam. ECG Findings * Normal sinus rhythm with possibly AVB. Left Ventricle * Mild concentric left ventricular hypertrophy. * Mild left ventricular diastolic dysfunction. * LVEF 60%. Aortic Valve * No aortic regurgitation. * Trileaflet aortic valve. * Normal aortic valve structure. * No aortic stenosis. Tricuspid Valve * Tricuspid valve not well visualized. * No tricuspid regurgitation. Pulmonic Valve * Pulmonic valve is not well visualized. * No pulmonic stenosis. * Mild pulmonic regurgitation. Mitral Valve * Mild mitral regurgitation. * Normal mitral structure. * No mitral stenosis. Pulmonary Artery * Pulmonary artery not well visualized. IVC * The IVC is not well evaluated. Interatrial Septum * Interatrial septum not well evaluated. Left Atrium * Normal left atrial size. Right Atrium * Right atrium is not well visualized. Right Ventricle * Not well evaluated. Pericardium * There is no pericardial effusion present. Aorta * Normally sized aortic root. History Hypertension Diabetes Family History of CAD History of CAD/PTCA Myocardial Infarction 2013 a Previous Echo was performed. Measurements: BP: 131/ 79 2D Normal Values IVSd: 1.40 cm 0.6 - 1.0 cm LVIDd: 4.20 cm 3.7 - 5.6 cm LVPWd: 1.30 cm 0.6 - 1.1 cm LVIDs: 2.80 cm 1.5 - 3.6 cm AO: 3.30 cm < 4.0 cm LA: 4.70 cm 2.0 - 4.0cm %FS: 33.30 cm >25 % LA volume: 47 Mitral Valve Peak E:.65 m/sec Peak A:1.00 m/sec E/A Ratio:0.7 Updated by Tonia High on 01/08/2017 2:38:13 PM electronically signed on 01/08/2017 2:41:22 PM with status of Final Wall Motion Johnson: 1=Normal, 2=Hypokinesis, 3=Akinesis, 4=Dyskinesis, 5=Aneurysmal, 6=Hyperkinetic, X=Not Visualized (Blank)=Missing
--- NOTE | 2017-01-08 15:09 | Electrocardiograph Report ---
[address] [address] Test Date: 2017-01-07 Pat Name: Emile Pugh Department: 103 Room: 3B54 Gender: M Construction Tech: : 1940 Requested By: Jorden Vela Order Number: [id number] Reading MD: Lorenzo Alvares MD Measurements Intervals [place] Rate: 60 P: 56 VT: 223 QRS: -21 QRSD: 132 T: -7 QT: 433 QTc: 433 Interpretive Statements SINUS RHYTHM WITH MARKED SINUS ARRHYTHMIA WITH FIRST DEGREE AV BLOCK BORDERLINE LEFT AXIS DEVIATION RIGHT BUNDLE BRANCH BLOCK MODERATE VOLTAGE CRITERIA FOR LVH Electronically Signed On 01-08-2017 15:08:32 EST by Lorenzo Alvares MD
--- NOTE | 2017-01-08 15:11 | Discharge Summary ---
Date of Encounter: 01/08/17 Time of Encounter: 09:30 - Discharge Diagnosis (1) Bradycardia Priority: Primary Status: Resolved Comments: Seen and evaluated by cardiology. Multifocal PVCs frequently noted on telemetry which is likely causing the heart rate to be read as low. No significant bradycardia noted on telemetry. Echocardiogram unremarkable, follow up outpatient. Cardiology recommended changing his short acting Lopressor to twice a day. (2) CAD (coronary artery disease) Priority: Secondary Status: Chronic Comments: Patient denied chest pain throughout this admission. His troponins are mildly elevated and peaked at 0.08 and trended back down. Do not suspect ACS. Cardiology recommended medical management. Qualifiers: Coronary Disease-Associated Artery/Lesion type: [place] artery [place] vs. transplanted heart: [place] heart Associated angina: without angina Qualified Code(s): I25.10 - Atherosclerotic heart disease of [place] coronary artery without angina pectoris (3) DVT prophylaxis Priority: Primary Status: Acute Comments: Subcutaneous Lovenox while admitted (4) Headache Priority: Primary Status: Resolved Comments: Patient denied headache at time of discharge. He denied vision changes. Imaging consistent with sinusitis and headache consistent with sinus pressure. Guaifenesin at discharge. Qualifiers: Headache type: tension-type Headache chronicity pattern: acute headache Intractability: intractable Qualified Code(s): G44.201 - Tension-type headache , unspecified, intractable (5) Liver transplant recipient Priority: Secondary Status: Chronic (6) Sinusitis Priority: Primary Status: Acute Comments: Patient stating he failed outpatient therapy with doxycycline and was started on levofloxacin last Sunday. He stated he started to exhibit symptoms of headache on Sunday which she is attributing to levofloxacin (documented 6% reaction of LUCAS in Lex[employer]). In any event, will treat symptomatically with guaifenesin and have him finish his Levaquin dosage Qualifiers: Sinusitis location: maxillary Chronicity: acute Recurrence: not specified as recurrent Qualified Code(s): J01.00 - Acute maxillary sinusitis, unspecified (7) Troponin level elevated Priority: Primary Status: Acute Comments: Trended back down, do not suspect ACS. Cardiology recommended medical management. (8) Type 2 diabetes mellitus Priority: Secondary Status: Chronic Comments: Controlled with an A1c of 6.2%, follow-up outpatient Qualifiers: Diabetes mellitus complication status: with unspecified complications Diabetes mellitus fdc insulin use: with fdc use Qualified Code(s) : E11.8 - Type 2 diabetes mellitus with unspecified complications; Z79.4 - custodial (current) use of insulin (9) Cancer associated pain Priority: Secondary Status: Chronic Comments: Patient stated his pain was controlled during this admission (10) Dyspnea on exertion Priority: Primary Status: Acute Comments: Likely secondary to upper respiratory tract infection/sinusitis. Echocardiogram with ejection fraction of 60%. Patient euvolemic on examination. Do not suspect heart failure. 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 Henao at [facility] Medications Prescriptions: Guaifenesin [Guaifenesin ER] 1,200 mg PO BID #20 tab.er.12h Metoprolol [Lopressor] 25 mg PO BID #30 tablet Saline Nasal [place] [[place] Nasal [place]] 1 - 2 spray NS Q2H PRN #1 bottle PRN Reason: Congestion Home Medications: Albuterol Sulfate [Proair Hfa] 2 puff IH Q4H PRN 07/19/16 [History] Aspirin [Lo-Dose Aspirin EC] 81 mg PO DAILY 07/19/16 [History] Betaine HCl 300 mg PO DAILY 07/19/16 [History] Calcium Carbonate [Calcium] 600 mg PO BID 07/19/16 [History] Clopidogrel [Plavix] 75 mg PO DAILY 07/19/16 [History] Cyanocobalamin (Vitamin B-12) [Vitamin B-12] 2,500 mcg SL DAILY 07/19/16 [ History] Enalapril Maleate [Vasotec] 10 mg PO BID 07/19/16 [History] Finasteride [Proscar] 5 mg PO DAILY 07/19/16 [History] Hydrochlorothiazide 0.5 tab PO QMWF 07/19/16 [History] Insulin ASPART [Novolog Flexpen] 15 - 20 unit SQ TIDAC 07/19/16 [History] Insulin Glargine,Hum.rec.anlog [Lantus Solostar] 50 unit SQ BID 07/19/16 [ History] Multivit-Min/FA/Lycopen/Lutein [Centrum Silver Tablet] 1 each PO DAILY 07/19/16 [History] Nitroglycerin 0.4 mg SL AD 07/19/16 [History] Omeprazole 20 mg PO HS 07/19/16 [History] Polyethylene Glycol 3350 [MiraLAX Powder Bulk 17.9 Oz] 1 scoop PO DAILY #510 gm 07/19/16 [Rx] Tacrolimus [Prograf] 1 mg PO BID 07/19/16 [History] Tamsulosin [Flomax] 0.4 mg PO DAILY 07/19/16 [History] Vitamin E 1,000 unit PO DAILY 07/19/16 [History] Oxygen 2 l IH AD #1 unit 08/01/16 [Rx] TraMADol [Ultram] 50 mg PO TID PRN #90 tablet 08/01/16 [Rx] Gabapentin [Neurontin] 300 mg PO HS 10/09/16 [History] Sorafenib Tosylate [Nexavar] 200 mg PO BID #60 tablet 11/08/16 [Rx] Benzonatate [Tessalon] 200 mg PO Q8H PRN 01/07/17 [History] Levofloxacin [Levaquin] 750 mg PO DAILY 01/07/17 [History] Tacrolimus [Prograf] 1 mg PO BID 01/07/17 [History] Guaifenesin [Guaifenesin ER] 1,200 mg PO BID #20 tab.er.12h 01/08/17 [Rx] Metoprolol [Lopressor] 25 mg PO BID #30 tablet 01/08/17 [Rx] Saline Nasal [place] [[place] Nasal [place]] 1 - 2 spray NS Q2H PRN #1 bottle [Rx] Allergies/Adverse Reactions: Allergies codeine Adverse Reaction (Verified 11/08/16 11:35) Vomiting morphine Adverse Reaction (Verified 11/08/16 11:35) See Comments Pt states it made him feel like he was going in slow motion. Penicillins Adverse Reaction (Verified 11/08/16 11:35) Rash Procedures/tests Complete & Pending: Procedures Performed prior 72 hours Category Date Time Status EV echocardiogram Routine Y 01/08/17 03:08 Completed Date of admission: 01/07/17 19:07 Primary care physician: Bahman Pugh CNP Consults: 01/08/17 03:08 Consult to Cardiology [CONS] Routine Comment: Consulting Provider: Cardiology Bells Reason for Consult: Episode of bradycardia Call Completed: No Discharging clinician: April Celis Anticipated date of discharge: 01/08/17 - Patient Status Disposition: Home, Self-Care Condition: Fair Functional capacity at discharge: independent ambulation Overall status at discharge: patient is back to baseline - Discharge Instructions Follow Up With: Bahman Pugh CNP [Primary Care Provider] - 01/17/17 2:00 pm Additional Instructions: Follow-up with primary care provider as scheduled - Diet and Activity Activity: increase activity as tolerated Diet: diabetic diet, low fat, low cholesterol, low salt diet Hospital course: Mr. Pugh is a 76 year old male with past medical history of hypertension, CAD, diabetes, pulmonary fibrosis and interstitial lung disease, hepatocellular carcinoma status post liver transplant 2004 with subsequent metastasis to lung and sacrum status post left lower lobectomy and palliative chemotherapy and radiation. Patient presented to the emergency room chief complaint headache 2 days. Patient also stated that at home, his heart rate dropped into the 30s as reported by his pokes on her at home. Patient denied lightheadedness, dizziness , palpitations while his heart rate was allegedly low. Patient also endorses cough and increased congestion with postnasal drip for one week. Patient also endorsed night sweats 2 nights prior to presentation. Patient stating he had completed a course of antibiotics for a sinus infection last week (doxycycline) . He states his medication did not help and when he was seen by his oncologist on Sunday, he was started on Levaquin. Patient stating the day after he started Levaquin, he developed a headache that was not relieved with over-the- counter medications. Patient described it as dull and pounding. Workup in the emergency department unremarkable. Head CT negative for acute processes and revealed acute sinusitis. CTA negative for PE and otherwise unremarkable. Chest x-ray negative for acute processes. The patient was admitted to the hospitalist service for further evaluation and management. Mild troponin elevation peaked at 0.08 and trended back down. Patient denied chest pain throughout this admission. Cardiology was brought on board who reviewed his telemetry and surmise his frequent PVCs were likely the causative factor of his heart rate reading low. He had an echocardiogram that was unremarkable with ejection fraction of 60%. Urinalysis negative. Patient is on 2 L per nasal cannula continuously at home, same while admitted. Patient denies shortness of breath above his norm throughout this admission. Cardiology recommended changing his metoprolol tartrate to twice a day to help control his frequent PVCs. Cardiology otherwise cleared him for outpatient follow-up. He was discharged home in stable condition with close outpatient follow-up recommended. He was instructed to continue his Levaquin dosage until completed and he was given prescriptions for saline nasal spray and guaifenesin. ITS Impressions Head CT 01/07/17 15:18 IMPRESSION: No hemorrhage or mass. There is mild small-vessel ischemic change Diffuse paranasal sinus disease D/ / Joe Galeas MD / Joe Galeas MD Interpreting Provider: Joe Galeas MD Chest CTA 01/07/17 15:19 IMPRESSION: 1. Negative for pulmonary embolic disease. 2. No acute process identified. Interstitial scarring is re-identified with mild bibasilar bronchiectasis. Postsurgical changes are noted in each lung. D/ / 01/07/2017 17:45:40 Markell Collazo MD / ariadna Interpreting Provider: Markell Collazo MD Chest X-Ray 01/07/17 15:19 IMPRESSION: 1. Increased interstitial opacities bilaterally compatible with chronic interstitial lung disease. Superimposed mild pulmonary edema is also possible. 2. Stable cardiomegaly. 3. Small bilateral pleural effusions and bibasal atelectasis. D/ / Angel Prabhakar MD / Angel Prabhakar MD Interpreting Provider: Angel Prabhakar MD Echocardiogram impressions: LVEF 60%. Normal left ventricular size and systolic function. Mild concentric hypertrophy of the left ventricle. There is evidence of mild diastolic dysfunction of the left ventricle. Normal right ventricular size and function. Mild mitral regurgitation. Mild pulmonic regurgitation. No pulmonary hypertension. Abnormal rhythm throughout the exam. Consider sinus with AVB. - Time Spent with Patient Total time spent providing and/or coordinating discharge services: - Constitutional Vitals: Temp Pulse Resp BP Pulse Ox 97.5 F L 64 16 131/79 95 01/08/17 10:57 01/08/17 10:57 01/08/17 10:57 01/08/17 10:57 01/08/17 10:57 General appearance: Present: A&O X 3, pleasant, no acute distress, answers questions appropriately - Head Head exam: Present: atraumatic, normocephalic - Expanded Head Exam Head exam expanded: Present: general tenderness (across sinuses) - Eye Eye exam: Present: EOMI, PERRL, conjuntiva pink, sclera anicteric Pupils: Present: PERRL - ENT ENT exam: Present: mucous membranes moist - Expanded ENT Exam Mouth exam: Absent: drooling - Neck Neck exam general surgery: Present: supple, trachea midline. Absent: lymphadenopathy - Respiratory Respiratory exam: Present: CTAB. Absent: accessory muscle use, rales, rhonchi, wheezes - Cardiovascular Cardiovascular exam: Present: RRR, +S1, +S2. Absent: diastolic murmur, gallop, rubs, systolic murmur - GI/Abdominal GI/Abdominal exam: Present: normal bowel sounds, soft, no peritoneal signs. Absent: distended, tenderness - Extremities Exam Extremities exam: Present: warm, radial pulses palpable and symetrical. Absent : calf tenderness, cyanotic, pedal edema - Neurological Exam Neurological exam: Present: alert, CN II-XII intact, normal gait, oriented X3, no focal deficits, strengths equal and symetr throughout. Absent: pronater drift, facial droop, speech deficit - Skin Skin exam: Present: dry, intact, normal color, warm
[2017-01-08 15:38] VITALS: BP 142/84
== END 2017-01-08 17:20 | disposition home or self-care (01) ==
LOC: 3BNU 14:21 → EMEROO 14:21 → 3BNU 21:11
PROVIDERS: ADMIT Nurse Practitioner Family; ATTEND Internal Medicine Endocrinology, Diabetes & Metabolism